=== PATIENT | male | born 2000 | race African-American/Black ===

== ENCOUNTER 2023-03-14 19:33 | Emergency (ER) | payer OTHER, SELFPAY ==
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
[2023-03-14 20:09] VITALS: BP 122/78; PULSE 61; RESP 18; TEMP 36.1; O2SAT 98; BMI 26.6
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
[2023-03-14] MEDS: Acetaminophen 325 MG TABLET 975 MG PO (20:25)
[2023-03-14 21:40] VITALS: BP 124/76; PULSE 60; RESP 19; TEMP 36.6; O2SAT 99
[2023-03-14] MEDS: Cyclobenzaprine HCl 10 MG TABLET PO (22:13)
== END 2023-03-14 22:31 | disposition home or self-care (01) ==
PROVIDERS: Emergency Provider Emergency Medicine
DX: S29.012A Strain of muscle and tendon of back wall of thorax, initial encounter (principal); S39.012A Strain of muscle, fascia and tendon of lower back, initial encounter; V43.52XA Car driver injured in collision with other type car in traffic accident, initial encounter; Y93.89 Activity, other specified; Y92.415 Exit ramp or entrance ramp of street or highway as the place of occurrence of the external cause; Y99.9 Unspecified external cause status
CPT/HCPCS: 72072; 72100; 99283

== ENCOUNTER 2023-03-21 07:29 | Emergency (ER) | payer OTHER, SELFPAY ==
[2023-03-21 07:47] VITALS: BP 116/72; PULSE 61; RESP 20; TEMP 36.1; O2SAT 98; BMI 25.8
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
== END 2023-03-21 11:06 | disposition home or self-care (01) ==
PROVIDERS: Emergency Provider Emergency Medicine
DX: S39.012A Strain of muscle, fascia and tendon of lower back, initial encounter (principal); V43.52XA Car driver injured in collision with other type car in traffic accident, initial encounter; Y92.410 Unspecified street and highway as the place of occurrence of the external cause; Y93.9 Activity, unspecified; Y99.9 Unspecified external cause status
CPT/HCPCS: 99282